=== PATIENT | male | born 1950 | race Caucasian/White ===

== ENCOUNTER 2018-07-11 13:15 | Day surgery (SDC) | payer MEDICARE, OTHER | END 2018-07-11 22:37 | disposition home or self-care (01) | LOC: WOUND 13:15 | DX: L98.412 Non-pressure chronic ulcer of buttock with fat layer exposed (principal) | CPT/HCPCS: G0463 ==

== ENCOUNTER 2018-07-18 07:55 | Day surgery (SDC) | payer MEDICARE, OTHER | END 2018-07-18 14:20 | disposition home or self-care (01) | LOC: WOUND 07:55 | DX: L98.412 Non-pressure chronic ulcer of buttock with fat layer exposed (principal); E11.9 Type 2 diabetes mellitus without complications; I10 Essential (primary) hypertension; F17.200 Nicotine dependence, unspecified, uncomplicated; G47.33 Obstructive sleep apnea (adult) (pediatric) | CPT/HCPCS: G0463 ==

== ENCOUNTER 2018-08-02 00:31 | Day surgery (SDC) | payer MEDICARE, OTHER | END 2018-08-02 12:00 | disposition home or self-care (01) | LOC: WOUND 00:31 | DX: E11.622 Type 2 diabetes mellitus with other skin ulcer (principal); L98.412 Non-pressure chronic ulcer of buttock with fat layer exposed; J44.9 Chronic obstructive pulmonary disease, unspecified; G47.30 Sleep apnea, unspecified; I10 Essential (primary) hypertension; F41.9 Anxiety disorder, unspecified | CPT/HCPCS: G0463 ==

== ENCOUNTER 2019-02-04 07:30 | Day surgery (SDC) | payer MEDICARE, OTHER | END 2019-02-04 22:51 | disposition home or self-care (01) | LOC: WOUND 07:30 | DX: E11.622 Type 2 diabetes mellitus with other skin ulcer (principal); L98.412 Non-pressure chronic ulcer of buttock with fat layer exposed; I10 Essential (primary) hypertension; J44.9 Chronic obstructive pulmonary disease, unspecified; G47.30 Sleep apnea, unspecified | CPT/HCPCS: 87070; 87075; 87205; G0463 ==

== ENCOUNTER 2019-02-11 08:55 | Day surgery (SDC) | payer MEDICARE, OTHER | END 2019-02-11 23:03 | disposition home or self-care (01) | LOC: WOUND 08:55 | DX: E11.622 Type 2 diabetes mellitus with other skin ulcer (principal); L98.412 Non-pressure chronic ulcer of buttock with fat layer exposed; I10 Essential (primary) hypertension; F17.200 Nicotine dependence, unspecified, uncomplicated | CPT/HCPCS: G0463 ==

== ENCOUNTER 2019-02-18 00:22 | Day surgery (SDC) | payer MEDICARE, OTHER | END 2019-02-18 23:01 | disposition home or self-care (01) | LOC: WOUND 00:22 | DX: E11.622 Type 2 diabetes mellitus with other skin ulcer (principal); L98.412 Non-pressure chronic ulcer of buttock with fat layer exposed; I10 Essential (primary) hypertension | CPT/HCPCS: G0463 ==

== ENCOUNTER 2019-02-25 00:14 | Day surgery (SDC) | payer MEDICARE, OTHER | END 2019-02-25 22:41 | disposition home or self-care (01) | LOC: WOUND 00:14 | DX: E11.622 Type 2 diabetes mellitus with other skin ulcer (principal); L98.412 Non-pressure chronic ulcer of buttock with fat layer exposed; I10 Essential (primary) hypertension; G47.30 Sleep apnea, unspecified; Z72.0 Tobacco use | CPT/HCPCS: G0463 ==

== ENCOUNTER 2019-03-04 00:22 | Day surgery (SDC) | payer MEDICARE, OTHER | END 2019-03-04 23:18 | disposition home or self-care (01) | LOC: WOUND 00:22 | DX: E11.622 Type 2 diabetes mellitus with other skin ulcer (principal); L98.412 Non-pressure chronic ulcer of buttock with fat layer exposed; I10 Essential (primary) hypertension; E11.40 Type 2 diabetes mellitus with diabetic neuropathy, unspecified; F17.200 Nicotine dependence, unspecified, uncomplicated | CPT/HCPCS: G0463 ==

== ENCOUNTER 2019-03-11 08:22 | Day surgery (SDC) | payer MEDICARE, OTHER | END 2019-03-11 22:54 | disposition home or self-care (01) | LOC: WOUND 08:22 | DX: E11.622 Type 2 diabetes mellitus with other skin ulcer (principal); L98.412 Non-pressure chronic ulcer of buttock with fat layer exposed; I10 Essential (primary) hypertension; G47.30 Sleep apnea, unspecified; J44.9 Chronic obstructive pulmonary disease, unspecified ==

== ENCOUNTER 2019-03-18 08:22 | Day surgery (SDC) | payer MEDICARE, OTHER | END 2019-03-18 22:38 | disposition home or self-care (01) | LOC: WOUND 08:22 | DX: E11.622 Type 2 diabetes mellitus with other skin ulcer (principal); L98.412 Non-pressure chronic ulcer of buttock with fat layer exposed; E11.40 Type 2 diabetes mellitus with diabetic neuropathy, unspecified; I10 Essential (primary) hypertension; J44.9 Chronic obstructive pulmonary disease, unspecified; G47.30 Sleep apnea, unspecified; D66 Hereditary factor VIII deficiency; F41.9 Anxiety disorder, unspecified | CPT/HCPCS: G0463 ==

== ENCOUNTER 2019-04-01 08:25 | Day surgery (SDC) | payer MEDICARE, OTHER | END 2019-04-01 22:40 | disposition home or self-care (01) | LOC: WOUND 08:25 | DX: E11.622 Type 2 diabetes mellitus with other skin ulcer (principal); L98.412 Non-pressure chronic ulcer of buttock with fat layer exposed; I10 Essential (primary) hypertension; F17.200 Nicotine dependence, unspecified, uncomplicated | CPT/HCPCS: G0463 ==

== ENCOUNTER → 2019-07-30 | Outpatient (CLI) | payer MEDICARE, OTHER ==
[2019-07-30 14:01] LABS: Stool Occult Bld Immuno 1 Negative (NEGATIVE)
== END ==
LOC: LAB SHORT 11:18 → LAB 11:18
PROVIDERS: Family Medicine
DX: Z12.11 Encounter for screening for malignant neoplasm of colon (principal)
CPT/HCPCS: G0328

== ENCOUNTER 2019-10-04 00:16 | Day surgery (SDC) | payer MEDICARE, OTHER ==
[~2019-10-04 00:16] MED LIST: ANORO ELLIPTA1 EACH INH; BUPROPION XL150 M1 PO; Doxazosin Mesyla4 MG PO; ERLEADA60 MG PO; LOVASTATIN40 MG PO; MONT4 PO; PROZAC20 MG PO; Percocet 5-3251 EACH PO; Ventolin/Prove6.7 GM INH
== END 2019-10-04 23:08 | disposition home or self-care (01) ==
LOC: WOUND 00:16
DX: E11.622 Type 2 diabetes mellitus with other skin ulcer (principal); L98.412 Non-pressure chronic ulcer of buttock with fat layer exposed; L72.9 Follicular cyst of the skin and subcutaneous tissue, unspecified; I10 Essential (primary) hypertension; Z88.5 Allergy status to narcotic agent; Z87.891 Personal history of nicotine dependence; Z79.899 Other long term (current) drug therapy
CPT/HCPCS: G0463

== ENCOUNTER 2019-10-17 00:14 | Day surgery (SDC) | payer MEDICARE, OTHER | END 2019-10-17 22:49 | disposition home or self-care (01) | LOC: WOUND 00:14 | DX: L98.412 Non-pressure chronic ulcer of buttock with fat layer exposed (principal); L72.9 Follicular cyst of the skin and subcutaneous tissue, unspecified | CPT/HCPCS: G0463 ==

== ENCOUNTER 2019-10-31 00:23 | Day surgery (SDC) | payer MEDICARE, OTHER | END 2019-10-31 22:35 | disposition home or self-care (01) | LOC: WOUND 00:23 | DX: E11.622 Type 2 diabetes mellitus with other skin ulcer (principal); L98.412 Non-pressure chronic ulcer of buttock with fat layer exposed; L72.9 Follicular cyst of the skin and subcutaneous tissue, unspecified; C61 Malignant neoplasm of prostate; I10 Essential (primary) hypertension; F17.200 Nicotine dependence, unspecified, uncomplicated; Z79.899 Other long term (current) drug therapy | CPT/HCPCS: G0463 ==

== ENCOUNTER 2020-01-19 21:54 | Inpatient (IN) | payer MEDICARE, OTHER ==
[~2020-01-19] VITALS: Ht 177.8 cm; Wt 105.4 kg
[~2020-01-19 21:54] MED LIST changes: -ANORO ELLIPTA1 EACH INH; -Doxazosin Mesyla4 MG PO; -LOVASTATIN40 MG PO; -MONT4 PO; -PROZAC20 MG PO; -Ventolin/Prove6.7 GM INH
[2020-01-19 22:49] LABS: BASOPHILS ABSOLUTE AUTO 0.14 K/mm3 (0.00-0.23); BASOPHILS PERCENT AUTO 2 % (0-2); EOSINOPHILS ABSOLUTE AUTO 0.24 K/mm3 (0.00-0.68); EOSINOPHILS PERCENT AUTO 3 % (0-6); Hematocrit 37.9 % (37.0-53.0); Hemoglobin 12.6 g/dL (13.5-17.5); IMMATURE GRAN ABSOLUTE AUTO 0.04 K/mm3 (0.00-0.10); IMMATURE GRAN PERCENT AUTO 1 % (0-1); LYMPHOCYTES ABSOLUTE AUTO 3.88 K/mm3 (0.84-5.20); LYMPHOCYTES PERCENT AUTO 44 % (21-46); MONOCYTES ABSOLUTE AUTO 0.77 K/mm3 (0.16-1.47); MONOCYTES PERCENT AUTO 9 % (4-13); Mean Corpuscular HGB 36.8 pg (26.0-34.0); Mean Corpuscular HGB Conc 33.2 g/dL (31.5-36.5); Mean Corpuscular Volume 111 fL (80-100); Mean Platelet Volume 9.8 fL (9.1-12.4); NEUTROPHILS ABSOLUTE AUTO 3.73 K/mm3 (1.96-9.15); NEUTROPHILS PERCENT AUTO 42 % (41-73); Platelet Count 161 K/mm3 (150-400); RDW Coefficient Variation 14.2 % (11.7-14.2); Red Blood Cell Count 3.42 M/mm3 (4.30-5.90)
[2020-01-19 23:06] LABS: International Normalized Ratio 1.31; Prothrombin Time Results 13.8 Sec (9.7-11.5)
[2020-01-19] MEDS ORDERED: Doxazosin Mesyla4 MG PO (23:07)
[2020-01-19] MEDS ORDERED: LOVASTATIN40 MG PO (23:07)
[2020-01-19] MEDS ORDERED: PROZAC20 MG PO (23:08)
[2020-01-19] MEDS ORDERED: MONT10T PO (23:08)
[2020-01-19] MEDS ORDERED: Klor-Con 1010 MEQ PO (23:09)
[2020-01-19] MEDS ORDERED: FUROSEMIDE40 MG PO (23:09)
[2020-01-19] MEDS ORDERED: Ventolin/Prove6.7 GM INH (23:10)
[2020-01-19] MEDS ORDERED: ANORO ELLIPTA1 EAC1 INH (23:10)
[2020-01-19] MEDS ORDERED: LATA.005SO BOTHEYES (23:20)
[2020-01-19] MEDS ORDERED: Restasis1 EACH BOTHEYES (23:21)
[2020-01-19 23:23] LABS: Alanine Aminotransfer (ALT/SGP 53 U/L (12-78); Albumin, Blood 2.9 g/dL (3.4-5.0); Albumin/Globulin Ratio 0.5 (0.8-1.8); Alk Phos 107 U/L (50-136); Anion Gap 9 mmol/L (6-16); Aspartate Aminotrans (AST/SGOT 162 U/L (12-37); Blood Urea Nitrogen 10 mg/dL (8-24); Bun/Creatinine Ratio 16.9 (12.0-20.0); CO2, Blood 28 mmol/L (21-32); Chloride, Blood 104 mmol/L (98-108); Creatinine, Blood 0.59 mg/dL (0.60-1.20); Globulin, Blood 5.8 g/dL (2.2-4.0); Glomerular Filtration Rate >60 (60-); Glucose, Blood 109 mg/dL (70-99); Potassium, Blood 3.4 mmol/L (3.5-5.5); Sodium, Blood 141 mmol/L (136-145); Total Protein, Blood 8.7 g/dL (6.4-8.2); Troponin I <0.015 ng/mL (0.000-0.040)
[2020-01-19] MEDS ORDERED: ERYT.5TO BOTHEYES (23:24)
--- NOTE | 2020-01-20 03:46 | NUR ---
IV TO L AC NOT PRESENT ON ADMIT. DRESSING IN PLACE W/SCANT BLOOD. IV CATHETER NOT FOUND IN BEDDING. ER NURSE STATED PT LEFT UNIT WITH IV IN PLACE.
--- NOTE | 2020-01-20 06:08 | NUR ---
SHIFT SUMMARY: FEDERICO IS A&OX4. VSS, NO ACUTE EVENTS. O2 @ 3 LPM VIA NC. HE WAS ADMITTED THIS SHIFT AFTER A GLF WITH A RIGHT FEMUR FX. HE REPORTS THAT THE NEW ORDER FOR IV DILAUDID IS EFFECTIVE AT MANAGING HIS PAIN MORESO THAN THE FENTANYL WAS. HE IS NPO. HE USES HIS CALL LIGHT APPROPRIATELY. HE IS USING THE URINAL WITHOUT DIFFICULTY. HE IS LYING IN BED WITH THE CALL LIGHT IN REACH. WILL REPORT TO DAY SHIFT RN.
[2020-01-20 08:18] LABS: BASOPHILS PERCENT AUTO 2 % (0-2); EOSINOPHILS ABSOLUTE AUTO 0.03 K/mm3 (0.00-0.68); EOSINOPHILS PERCENT AUTO 1 % (0-6); Hemoglobin 11.8 g/dL (13.5-17.5); IMMATURE GRAN ABSOLUTE AUTO 0.02 K/mm3 (0.00-0.10); IMMATURE GRAN PERCENT AUTO 0 % (0-1); LYMPHOCYTES ABSOLUTE AUTO 1.27 K/mm3 (0.84-5.20); LYMPHOCYTES PERCENT AUTO 20 % (21-46); MONOCYTES PERCENT AUTO 11 % (4-13); Mean Corpuscular HGB 36.5 pg (26.0-34.0); Mean Corpuscular HGB Conc 32.8 g/dL (31.5-36.5); Mean Corpuscular Volume 112 fL (80-100); Mean Platelet Volume 9.3 fL (9.1-12.4); NEUTROPHILS ABSOLUTE AUTO 4.34 K/mm3 (1.96-9.15); NEUTROPHILS PERCENT AUTO 67 % (41-73); Platelet Count 117 K/mm3 (150-400); RDW Coefficient Variation 13.8 % (11.7-14.2); RDW Standard Deviation 57.4 fL (35.1-46.3); Red Blood Cell Count 3.23 M/mm3 (4.30-5.90); White Blood Cell Count 6.46 K/mm3 (4.00-11.30)
[2020-01-20 08:34] LABS: Anion Gap 8 mmol/L (6-16); Blood Urea Nitrogen 11 mg/dL (8-24); Bun/Creatinine Ratio 22.4 (12.0-20.0); CO2, Blood 29 mmol/L (21-32); Calcium, Blood 7.9 mg/dL (8.5-10.1); Chloride, Blood 105 mmol/L (98-108); Creatinine, Blood 0.49 mg/dL (0.60-1.20); Glomerular Filtration Rate >60 (60-); Glucose, Blood 100 mg/dL (70-99); International Normalized Ratio 1.3; Potassium, Blood 3.3 mmol/L (3.5-5.5); Prothrombin Time Results 13.7 Sec (9.7-11.5); Sodium, Blood 142 mmol/L (136-145)
--- NOTE | 2020-01-20 13:05 | NUR ---
PT INTO SDS VIA BED FROM MED FLOOR. History, Chart, Medications and Allergies reviewed before start of procedure. Lungs clear T/O to Auscultation. Patient confirms NPO status and agrees with scheduled surgery. Pre-Op teaching done. Pt verbalizes understanding.
--- NOTE | 2020-01-20 16:58 | NUR ---
PT ARRIVED TO THE ROOM FROM PACU AT APPROXIMATLEY 1605. PT IS DROWSY BUT ORIENTED. HE IS TREMULOUS AND REPORTS MILD ANXIETY; CIWA SCORE OF 4. PT IS RESTING IN BED, HE RATES HIS PAIN AT 6/10 BUT APPEARS COMFORTABLE. PT HAS MILD HTN. WILL CONTINUE TO MONITOR.
--- NOTE | 2020-01-20 17:03 | NUR ---
DR. BECERRIL NOTIFIED OF CIWA SCORE OF 4 AT THIS TIME. LIBRIUM AND ATIVAN REQUESTED FOR MANAGEMENT OF WITHDRAWAL SYMPTOMS. DR. BECERRIL ALSO NOTIFIED OF ELEVATED BP, HYDRALAZINE PRN REQUESTED. INCREASE IN PO PAIN MEDICATION REQUESTED TO DECREASE THE USE OF IV NARCOTICS. WILL CONTINUE TO MONITOR AND AWAIT ORDERS.
--- NOTE | 2020-01-20 18:01 | NUR ---
SHIFT SUMMARY PT IS POD#0 FROM A R HIP PINNING WITH DR. SARABIA. PT'S PAIN HAS BEEN MANAGED WITHOUT ADDITIONAL PAIN MEDICATION SINCE HE ARRIVED TO THE UNIT. PT'S CIWA SCORE IS 4 AND HE WAS GIVEN LIBRIUM. PT HAS BEEN ON 2 LITERS O2 SINCE HE ARRIVED TO THE UNIT, PT IS WORKING ON USING HIS FLUTTER VALVE. VSS. WILL MONITOR UNTIL REPORT TO ONCOMING RN.
[2020-01-21 04:24] LABS: Hematocrit 30.8 % (37.0-53.0); Hemoglobin 10.2 g/dL (13.5-17.5); Mean Corpuscular HGB 36.7 pg (26.0-34.0); Mean Corpuscular HGB Conc 33.1 g/dL (31.5-36.5); Mean Corpuscular Volume 111 fL (80-100); Mean Platelet Volume 10.1 fL (9.1-12.4); Platelet Count 110 K/mm3 (150-400); RDW Coefficient Variation 13.8 % (11.7-14.2); RDW Standard Deviation 57.3 fL (35.1-46.3); Red Blood Cell Count 2.78 M/mm3 (4.30-5.90)
[2020-01-21 04:40] LABS: Anion Gap 6 mmol/L (6-16); Blood Urea Nitrogen 14 mg/dL (8-24); Bun/Creatinine Ratio 26.7 (12.0-20.0); CO2, Blood 33 mmol/L (21-32); Calcium, Blood 7.5 mg/dL (8.5-10.1); Chloride, Blood 101 mmol/L (98-108); Creatinine, Blood 0.52 mg/dL (0.60-1.20); Glomerular Filtration Rate >60 (60-); Glucose, Blood 100 mg/dL (70-99); Magnesium, Blood 1.2 mg/dL (1.6-2.4); Phosphorus, Blood 3.7 mg/dL (2.5-4.9); Potassium, Blood 3.4 mmol/L (3.5-5.5); Sodium, Blood 140 mmol/L (136-145)
--- NOTE | 2020-01-21 06:45 | NUR ---
SHIFT SUMMARY LYING IN SEMI FOWERS WITH EYES CLOSED. HAS RESTED WELL, MEDICATED FOR PAIN X1 THIS SHIFT. STATES THAT KPAD HAS REALLY HELPED CONTROL THE PAIN HE FELT IN HIS LEFT SHOULDER THAT WAS NOT RELIVED WITH IV PAIN MEDS. DENIES PAIN, DISCOMFORT, OR FURTHER NEEDS AT THIS TIME. SAFETY MEASURES IN PLACE. WILL CONTINUE TO MONITOR AND GIVE HAND OFF TO ONCOMING SHIFT USING SBAR DURING BEDSIDE REPORT.
--- NOTE | 2020-01-21 13:50 | NUR ---
01/21/20 1350 Krys Callahan VERIFICATIONS: EDIT CHART.
--- NOTE | 2020-01-21 17:43 | NUR ---
SHIFT SUMMARY PT IS POD#1 FROM A RIGHT HIP PINNING WITH DR. SARABIA. PAIN HAS BEEN MANAGED WITH 2 OXYCODONE EVERY 4 HOURS NEEDED. PT REPORTS HE HAS CHRONIC PAIN AT BASELINE. PT WAS ABLE TO WORK WITH PHYSICAL THERAPY THIS SHIFT, HE WAS A 2 PERSON MAX ASSIST TO SIT AT THE EDGE OF THE BED. PT IS A MAX ASSIST FOR TURNING AND IS PAINFUL WITH MOVEMENT EVEN WHEN MEDICATED. [facility] WAS CONTACTED TODAY FOR PT'S HOME DRESSING CHANGE ORDERS, TO RE-DRESS CHRONIC WOUND IN THE SUZIE/THIGH FOLD. PLAN FOR SNF UPON DISCHARGE. VSS. WILL MONITOR UNTIL REPORT TO ONCOMING RN.
--- NOTE | 2020-01-22 06:42 | NUR ---
SHIFT SUMMARY LYING IN SEMI FOWERS WITH EYES CLOSED, HAS RESTED WELL. MEDICATED FOR PAIN X1 THIS SHIFT. STATES THAT HE IS READY FOR HIS IVF TO BE D/C'D. STATES HE IS TIRED OF URINATING SO MUCH. DENIES DISCOMFORT, OR FURTHER NEEDS AT THIS TIME. SAFETY MEASURES IN PLACE. WILL CONTINUE TO MONITOR AND GIVE HAND OFF TO ONCOMING SHIFT USING SBAR DURING BEDSIDE REPORT.
[2020-01-22 08:32] LABS: Hematocrit 31.2 % (37.0-53.0); Hemoglobin 10.2 g/dL (13.5-17.5); Mean Corpuscular HGB 36.3 pg (26.0-34.0); Mean Corpuscular HGB Conc 32.7 g/dL (31.5-36.5); Mean Corpuscular Volume 111 fL (80-100); Mean Platelet Volume 10.4 fL (9.1-12.4); Platelet Count 129 K/mm3 (150-400); RDW Coefficient Variation 13.2 % (11.7-14.2); Red Blood Cell Count 2.81 M/mm3 (4.30-5.90); White Blood Cell Count 7.62 K/mm3 (4.00-11.30)
[2020-01-22 08:44] LABS: Anion Gap 5 mmol/L (6-16); Blood Urea Nitrogen 8 mg/dL (8-24); Bun/Creatinine Ratio 14.9 (12.0-20.0); CO2, Blood 29 mmol/L (21-32); Chloride, Blood 103 mmol/L (98-108); Creatinine, Blood 0.54 mg/dL (0.60-1.20); Glomerular Filtration Rate >60 (60-); Glucose, Blood 89 mg/dL (70-99); Magnesium, Blood 1.4 mg/dL (1.6-2.4); Potassium, Blood 3.7 mmol/L (3.5-5.5); Sodium, Blood 137 mmol/L (136-145)
--- NOTE | 2020-01-22 13:53 | NUR ---
REPORT CALLED TO STEPHEN AT [facility]
--- NOTE | 2020-01-22 15:21 | NUR ---
DISCHARGE SUMMARY PT A&OX4, VSS, T98.7, LEFT VIA GURNEY TO [facility] WITH ALL PERSONAL POSSESSIONS INCLUDING 2 HEARING AIDS, CELL PHONE AND DECAL APPLIER; IN ROOM AT TIME OF DC AND LOOKED ROOM OVER TO ENSURE ALL PERSONAL ITEMS TAKEN. REPORT CALLED TO STEPHEN. MARINO ASH.
== END 2020-01-22 15:01 | DRG 481 ==
LOC: ER 21:54 → SURS 23:21
PROVIDERS: Emergency Medicine; Internal Medicine; Orthopaedic Surgery; ADMIT Family Medicine
PROC: 0QS636Z Reposition Right Upper Femur with Intramedullary Internal Fixation Device, Percutaneous Approach (ICD-10-PCS; principal; 2020-01-20 08:30)
DX: S72.141A Displaced intertrochanteric fracture of right femur, initial encounter for closed fracture (principal); C79.51 Secondary malignant neoplasm of bone; J44.9 Chronic obstructive pulmonary disease, unspecified; Z85.46 Personal history of malignant neoplasm of prostate; F10.10 Alcohol abuse, uncomplicated; D64.9 Anemia, unspecified; E87.6 Hypokalemia; Z20.828 Contact with and (suspected) exposure to other viral communicable diseases; W18.30XA Fall on same level, unspecified, initial encounter; Z66 Do not resuscitate; Z87.891 Personal history of nicotine dependence; C61 Malignant neoplasm of prostate
CPT/HCPCS: 36415; 71045; 72100; 73502; 73503; 73552; 80048; 80053; 83735; 84100; 84484; 85025; 85027; 85610; 86850; 86900; 86901; 93005; 93010; 94640; 94667; 94760; 94762; 97110; 97112; 97116; 97162; 97166; 99285-25; A9270; A9270-GY; C1713; J0330; J0690; J1170; J2250; J2370; J2704; J3010; J3475; J7030; J7120; U0002

== ENCOUNTER 2020-03-09 09:37 | Observation (INO) | payer MEDICARE, OTHER ==
[~2020-03-09] VITALS: Ht 177.8 cm; Wt 99.6 kg
[~2020-03-09 09:37] MED LIST changes: +AMOCLA875 PO; +AZIT250 PO; +BUDE.25 INH; +ERYT.5TO BOTHEYES; +LATA.005SO BOTHEYES; +LOVASTATIN40 MG PO; +Levaquin750 MG PO; +MUPIROCIN15 GM TOP; +OXYC5 PO; +Restasis1 EACH BOTHEYES; +SULTRIDS PO; +VISBIOME PROBIOTIC PO
[2020-03-09 10:34] LABS: BASOPHILS ABSOLUTE AUTO 0.05 K/mm3 (0.00-0.23); BASOPHILS PERCENT AUTO 1 % (0-2); EOSINOPHILS ABSOLUTE AUTO 0.01 K/mm3 (0.00-0.68); EOSINOPHILS PERCENT AUTO 0 % (0-6); Hematocrit 39.6 % (37.0-53.0); Hemoglobin 13.2 g/dL (13.5-17.5); IMMATURE GRAN ABSOLUTE AUTO 0.01 K/mm3 (0.00-0.10); IMMATURE GRAN PERCENT AUTO 0 % (0-1); LYMPHOCYTES ABSOLUTE AUTO 1.07 K/mm3 (0.84-5.20); LYMPHOCYTES PERCENT AUTO 28 % (21-46); MONOCYTES ABSOLUTE AUTO 0.58 K/mm3 (0.16-1.47); MONOCYTES PERCENT AUTO 15 % (4-13); Mean Corpuscular HGB 34.9 pg (26.0-34.0); Mean Corpuscular HGB Conc 33.3 g/dL (31.5-36.5); Mean Corpuscular Volume 105 fL (80-100); Mean Platelet Volume 9.3 fL (9.1-12.4); NEUTROPHILS ABSOLUTE AUTO 2.07 K/mm3 (1.96-9.15); NEUTROPHILS PERCENT AUTO 55 % (41-73); Platelet Count 147 K/mm3 (150-400); RDW Coefficient Variation 11.7 % (11.7-14.2); RDW Standard Deviation 45.8 fL (35.1-46.3); Red Blood Cell Count 3.78 M/mm3 (4.30-5.90); White Blood Cell Count 3.79 K/mm3 (4.00-11.30)
[2020-03-09 10:36] LABS: PCO2 Arterial 36.8 mmHg (35-45); PO2 Arterial 60.2 mmHg (80-100); pH Blood Arterial 7.48 (7.35-7.45)
[2020-03-09 10:48] LABS: Alanine Aminotransfer (ALT/SGP 17 U/L (12-78); Albumin, Blood 2.9 g/dL (3.4-5.0); Albumin/Globulin Ratio 0.7 (0.8-1.8); Alk Phos 128 U/L (50-136); Anion Gap 7 mmol/L (6-16); Aspartate Aminotrans (AST/SGOT 42 U/L (12-37); Bilirubin, Total 0.7 mg/dL (0.1-1.0); Blood Urea Nitrogen 10 mg/dL (8-24); Bun/Creatinine Ratio 17.8 (12.0-20.0); CO2, Blood 26 mmol/L (21-32); Calcium, Blood 8.9 mg/dL (8.5-10.1); Chloride, Blood 106 mmol/L (98-108); Creatinine, Blood 0.56 mg/dL (0.60-1.20); Globulin, Blood 4.4 g/dL (2.2-4.0); Glomerular Filtration Rate >60 (60-); Glucose, Blood 94 mg/dL (70-99); Sodium, Blood 139 mmol/L (136-145); Total Protein, Blood 7.3 g/dL (6.4-8.2)
[2020-03-09 12:18] LABS: Adenovirus Not Detected (NOT DETECT); Bordetella pertussis Not Detected (NOT DETECT); Chlamydophila pneumoniae Not Detected (NOT DETECT); Coronavirus 229E Not Detected (NOT DETECT); Coronavirus HKU1 Not Detected (NOT DETECT); Coronavirus NL63 Not Detected (NOT DETECT); Coronavirus OC43 Not Detected (NOT DETECT); Human Metapneumovirus Not Detected (NOT DETECT); Human Rhinovirus/Enterovirus Not Detected (NOT DETECT); Influenza A/2009-H1 Not Detected (NOT DETECT); Influenza A/H1 Not Detected (NOT DETECT); Influenza A/H3 Not Detected (NOT DETECT); Influenza B Not Detected (NOT DETECT); Mycoplasma pneumoniae Not Detected (NOT DETECT); Parainfluenza Virus 1 Not Detected (NOT DETECT); Parainfluenza Virus 2 Not Detected (NOT DETECT); Parainfluenza Virus 3 Not Detected (NOT DETECT); Parainfluenza Virus 4 Not Detected (NOT DETECT); Respiratory Syncytial Virus Not Detected (NOT DETECT); SARS-Cov-2 (COVID-19), BioFire Not Detected (NOT DETECT)
[2020-03-09] MEDS ORDERED: PROZAC20 MG PO (12:34)
[2020-03-09] MEDS ORDERED: Doxazosin Mesyla4 MG PO (12:34)
[2020-03-09] MEDS ORDERED: LOVA40 PO (12:35)
[2020-03-09] MEDS ORDERED: IPRAT-ALBUT 0.5-3 ML INH (12:35)
[2020-03-09] MEDS ORDERED: ANORO ELLIPTA1 EAC1 INH (12:39)
[2020-03-09] MEDS ORDERED: MONT10T PO (12:41)
[2020-03-09] MEDS ORDERED: FUROSEMIDE40 MG PO (12:41)
[2020-03-09] MEDS ORDERED: Klor-Con 1010 MEQ PO (12:41)
[2020-03-09] MEDS ORDERED: Ventolin/Prove6.7 GM INH (12:42)
[2020-03-09] MEDS ORDERED: ACET325 PO (13:25)
[2020-03-09] MEDS ORDERED: COLACE100 MG PO (13:25)
[2020-03-09] MEDS ORDERED: CYCLOBENZAPRINE5 MG PO (13:27)
[2020-03-09] MEDS ORDERED: OXYACE7.5T PO (13:33)
[2020-03-10 04:41] LABS: Hematocrit 42.9 % (37.0-53.0); Hemoglobin 13.9 g/dL (13.5-17.5); Mean Corpuscular HGB 34.2 pg (26.0-34.0); Mean Corpuscular HGB Conc 32.4 g/dL (31.5-36.5); Mean Corpuscular Volume 106 fL (80-100); Mean Platelet Volume 9.5 fL (9.1-12.4); Platelet Count 139 K/mm3 (150-400); RDW Coefficient Variation 11.5 % (11.7-14.2); Red Blood Cell Count 4.06 M/mm3 (4.30-5.90); White Blood Cell Count 2.53 K/mm3 (4.00-11.30)
[2020-03-10 05:00] LABS: Anion Gap 8 mmol/L (6-16); Blood Urea Nitrogen 12 mg/dL (8-24); Bun/Creatinine Ratio 22.3 (12.0-20.0); CO2, Blood 24 mmol/L (21-32); Calcium, Blood 9.1 mg/dL (8.5-10.1); Chloride, Blood 107 mmol/L (98-108); Creatinine, Blood 0.54 mg/dL (0.60-1.20); Glomerular Filtration Rate >60 (60-); Glucose, Blood 162 mg/dL (70-99); Potassium, Blood 3.9 mmol/L (3.5-5.5); Sodium, Blood 139 mmol/L (136-145)
[2020-03-10] MEDS ORDERED: AZIT500 PO (16:29)
[2020-03-10] MEDS ORDERED: DELTASONE20 MG PO (16:30)
== END 2020-03-10 16:55 | disposition home health service (06) ==
LOC: ER 09:37 → MEDS 09:38
PROVIDERS: Emergency Medicine; Nurse Practitioner Acute Care; ADMIT Hospitalist
DX: J44.1 Chronic obstructive pulmonary disease with (acute) exacerbation (principal); J96.01 Acute respiratory failure with hypoxia; G92 Toxic encephalopathy; D61.818 Other pancytopenia; C61 Malignant neoplasm of prostate; C79.51 Secondary malignant neoplasm of bone; E78.5 Hyperlipidemia, unspecified; N40.1 Benign prostatic hyperplasia with lower urinary tract symptoms; F33.1 Major depressive disorder, recurrent, moderate; H40.1311 Pigmentary glaucoma, right eye, mild stage; E11.9 Type 2 diabetes mellitus without complications; I10 Essential (primary) hypertension; N13.8 Other obstructive and reflux uropathy; H04.129 Dry eye syndrome of unspecified lacrimal gland; Z23 Encounter for immunization; Z20.828 Contact with and (suspected) exposure to other viral communicable diseases; Z87.891 Personal history of nicotine dependence; Z79.82 Long term (current) use of aspirin; Z79.01 Long term (current) use of anticoagulants; Z79.899 Other long term (current) drug therapy; Z66 Do not resuscitate; Z79.51 Long term (current) use of inhaled steroids; Z88.5 Allergy status to narcotic agent
CPT/HCPCS: 0202U; 36415; 36600; 71045; 80048; 80053; 82803; 85025; 85027; 93005; 93010; 94640; 94644; 94664; 94760; 94761; 96372; 96374; 96376; 97110; 97116; 97161; 97165; 97535; 98960; 99285-25; G0378; J1650; J2930

== ENCOUNTER 2020-06-22 00:47 | Day surgery (SDC) | payer MEDICARE, OTHER ==
[~2020-06-22 00:47] MED LIST changes: +ACET325 PO; +AZIT500 PO; +COLACE100 MG PO; +CYCLOBENZAPRINE5 MG PO; +DELTASONE20 MG PO; +Doxazosin Mesyla4 MG PO; +FURO20 PO; +IPRAT-ALBUT 0.5-3 ML INH; +Klor-Con 1010 MEQ PO; +LOVA40 PO; +MONT10T PO; +OXYACE7.5T PO; +PROZAC20 MG PO; +Ventolin/Prove6.7 GM INH
== END 2020-06-22 23:45 ==
LOC: WOUND 00:47
DX: L98.412 Non-pressure chronic ulcer of buttock with fat layer exposed (principal); E11.9 Type 2 diabetes mellitus without complications; I10 Essential (primary) hypertension; C61 Malignant neoplasm of prostate; C79.51 Secondary malignant neoplasm of bone; F17.200 Nicotine dependence, unspecified, uncomplicated; Z88.8 Allergy status to other drugs, medicaments and biological substances
CPT/HCPCS: G0463

== ENCOUNTER → 2020-06-26 | Outpatient (CLI) | payer MEDICARE, OTHER ==
[~2020-06-26] MED LIST changes: +ALBU2.5V5 NEB; +ANORO ELLIPTA1 EAC1 INH; +B-1100 M1 PO; +BICALUTAMIDE PO; +CALCIUM CARBON500 M4 PO; +DOCUZEN 8.6-501 EACH PO; +DOXY100 PO; +DULO60 PO; +FAMO20 PO; +MIRALAX17 GM PO; +MULVITA PO; +Nicoderm Cq1 EAC1 TOP; +ORGOVYX120 MG PO; +SPIR25 PO
[2020-06-26 15:01] LABS: Appearance, Urine Clear (Clear); Bilirubin, Urine Neg (Neg); Blood, Urine Neg (Neg); Color, Urine Yellow (P-Yellow); Glucose Qualitative, Urine Neg (Neg); Ketones, Urine Neg (Neg); Leukocyte Esterase, Urine Neg (Neg); Nitrite, Urine Neg (Neg); Protein, Urine Neg (Neg); Urobilinogen, Urine NORM (Normal)
== END | disposition home or self-care (01) ==
LOC: LAB 12:20 → LAB SHORT 12:20
PROVIDERS: Family Medicine
DX: N39.0 Urinary tract infection, site not specified (principal)
CPT/HCPCS: 81003

== ENCOUNTER 2020-07-02 00:27 | Day surgery (SDC) | payer MEDICARE, OTHER ==
[~2020-07-02 00:27] MED LIST changes: -ALBU2.5V5 NEB; -ANORO ELLIPTA1 EAC1 INH; -B-1100 M1 PO; -BICALUTAMIDE PO; -CALCIUM CARBON500 M4 PO; -DOCUZEN 8.6-501 EACH PO; -DOXY100 PO; -DULO60 PO; -FAMO20 PO; -MIRALAX17 GM PO; -MULVITA PO; -Nicoderm Cq1 EAC1 TOP; -ORGOVYX120 MG PO; -SPIR25 PO
== END 2020-07-02 22:48 | disposition home or self-care (01) ==
LOC: WOUND 00:27
DX: E11.622 Type 2 diabetes mellitus with other skin ulcer (principal); L98.412 Non-pressure chronic ulcer of buttock with fat layer exposed; L98.492 Non-pressure chronic ulcer of skin of other sites with fat layer exposed; L98.8 Other specified disorders of the skin and subcutaneous tissue; J44.9 Chronic obstructive pulmonary disease, unspecified; I10 Essential (primary) hypertension; C61 Malignant neoplasm of prostate; Z72.0 Tobacco use
CPT/HCPCS: G0463

== ENCOUNTER 2020-07-15 00:26 | Day surgery (SDC) | payer MEDICARE, OTHER | END 2020-07-15 22:47 | disposition home or self-care (01) | LOC: WOUND 00:26 | DX: E11.622 Type 2 diabetes mellitus with other skin ulcer (principal); L98.412 Non-pressure chronic ulcer of buttock with fat layer exposed; J44.9 Chronic obstructive pulmonary disease, unspecified; G47.30 Sleep apnea, unspecified; I10 Essential (primary) hypertension; Z72.0 Tobacco use | CPT/HCPCS: A9270; G0463 ==

== ENCOUNTER 2020-07-22 00:06 | Day surgery (SDC) | payer MEDICARE, OTHER | END 2020-07-22 22:39 | disposition home or self-care (01) | LOC: WOUND 00:06 | DX: L98.412 Non-pressure chronic ulcer of buttock with fat layer exposed (principal); E11.9 Type 2 diabetes mellitus without complications; J44.9 Chronic obstructive pulmonary disease, unspecified; I10 Essential (primary) hypertension; Z72.0 Tobacco use | CPT/HCPCS: A9270; G0463 ==

== ENCOUNTER 2020-07-27 01:32 | Day surgery (SDC) | payer MEDICARE, OTHER | END 2020-07-27 23:06 | disposition home or self-care (01) | LOC: WOUND 01:32 | DX: E11.622 Type 2 diabetes mellitus with other skin ulcer (principal); L98.412 Non-pressure chronic ulcer of buttock with fat layer exposed; J44.9 Chronic obstructive pulmonary disease, unspecified; I10 Essential (primary) hypertension; Z72.0 Tobacco use | CPT/HCPCS: A9270; G0463 ==

== ENCOUNTER 2020-08-06 00:17 | Day surgery (SDC) | payer MEDICARE, OTHER | END 2020-08-06 23:00 | disposition home or self-care (01) | LOC: WOUND 00:17 | DX: L97.812 Non-pressure chronic ulcer of other part of right lower leg with fat layer exposed (principal); E11.9 Type 2 diabetes mellitus without complications; J44.9 Chronic obstructive pulmonary disease, unspecified; I10 Essential (primary) hypertension; C61 Malignant neoplasm of prostate; Z72.0 Tobacco use | CPT/HCPCS: G0463 ==

== ENCOUNTER 2020-08-12 00:17 | Day surgery (SDC) | payer MEDICARE, OTHER | END 2020-08-12 22:37 | disposition home or self-care (01) | LOC: WOUND 00:17 | DX: E11.622 Type 2 diabetes mellitus with other skin ulcer (principal); L98.412 Non-pressure chronic ulcer of buttock with fat layer exposed; J44.9 Chronic obstructive pulmonary disease, unspecified; I10 Essential (primary) hypertension; C61 Malignant neoplasm of prostate; G47.33 Obstructive sleep apnea (adult) (pediatric); Z72.0 Tobacco use | CPT/HCPCS: G0463 ==

== ENCOUNTER 2020-08-24 00:18 | Day surgery (SDC) | payer MEDICARE, OTHER | END 2020-08-24 22:50 | disposition home or self-care (01) | LOC: WOUND 00:18 | DX: L98.412 Non-pressure chronic ulcer of buttock with fat layer exposed (principal); I10 Essential (primary) hypertension; E11.9 Type 2 diabetes mellitus without complications; J44.9 Chronic obstructive pulmonary disease, unspecified | CPT/HCPCS: G0463 ==

== ENCOUNTER 2020-09-07 00:23 | Day surgery (SDC) | payer MEDICARE, OTHER ==
[~2020-09-07 00:23] MED LIST changes: +ANORO ELLIPTA1 EAC1 INH; -FURO20 PO; +FUROSEMIDE40 MG PO
== END 2020-09-07 22:40 | disposition home or self-care (01) ==
LOC: WOUND 00:23
DX: E11.622 Type 2 diabetes mellitus with other skin ulcer (principal); L98.412 Non-pressure chronic ulcer of buttock with fat layer exposed; J44.9 Chronic obstructive pulmonary disease, unspecified; I10 Essential (primary) hypertension; Z72.0 Tobacco use; Z85.46 Personal history of malignant neoplasm of prostate
CPT/HCPCS: G0463

== ENCOUNTER → 2020-11-17 | Outpatient (CLI) | payer MEDICARE, OTHER ==
[~2020-11-17] MED LIST changes: +ALBU2.5V5 NEB; +B-1100 M1 PO; +BICALUTAMIDE PO; +CALCIUM CARBON500 M4 PO; +DOCUZEN 8.6-501 EACH PO; +DOXY100 PO; +DULO60 PO; +FAMO20 PO; +FURO20 PO; -FUROSEMIDE40 MG PO; +MIRALAX17 GM PO; +MULVITA PO; +Nicoderm Cq1 EAC1 TOP; +ORGOVYX120 MG PO; +SPIR25 PO
== END | disposition home or self-care (01) ==
LOC: LAB 15:00 → LAB SHORT 15:00
PROVIDERS: Family Medicine
DX: C61 Malignant neoplasm of prostate (principal)
CPT/HCPCS: 84153

== ENCOUNTER 2020-11-23 14:05 | Inpatient (IN) | payer MEDICARE, OTHER ==
[~2020-11-23] VITALS: Ht 177.8 cm; Wt 108.1 kg
[~2020-11-23 14:05] MED LIST changes: -ALBU2.5V5 NEB; -ANORO ELLIPTA1 EAC1 INH; -B-1100 M1 PO; -BICALUTAMIDE PO; -CALCIUM CARBON500 M4 PO; -DOCUZEN 8.6-501 EACH PO; -DOXY100 PO; -DULO60 PO; -FAMO20 PO; -MIRALAX17 GM PO; -MULVITA PO; -Nicoderm Cq1 EAC1 TOP; -ORGOVYX120 MG PO; -SPIR25 PO
[2020-11-23] MEDS ORDERED: DULO60 PO (15:01)
[2020-11-23] MEDS ORDERED: ORGOVYX120 MG PO (15:02)
[2020-11-23 15:07] LABS: BASOPHILS ABSOLUTE AUTO 0.14 K/mm3 (0.00-0.23); BASOPHILS PERCENT AUTO 1 % (0-2); EOSINOPHILS ABSOLUTE AUTO 0.08 K/mm3 (0.00-0.68); EOSINOPHILS PERCENT AUTO 1 % (0-6); Hematocrit 34.9 % (37.0-53.0); Hemoglobin 12.6 g/dL (13.5-17.5); IMMATURE GRAN ABSOLUTE AUTO 0.12 K/mm3 (0.00-0.10); IMMATURE GRAN PERCENT AUTO 1 % (0-1); LYMPHOCYTES ABSOLUTE AUTO 2.34 K/mm3 (0.84-5.20); LYMPHOCYTES PERCENT AUTO 14 % (21-46); MONOCYTES ABSOLUTE AUTO 1.54 K/mm3 (0.16-1.47); MONOCYTES PERCENT AUTO 9 % (4-13); Mean Corpuscular HGB 40.5 pg (26.0-34.0); Mean Corpuscular HGB Conc 36.1 g/dL (31.5-36.5); Mean Corpuscular Volume 112 fL (80-100); Mean Platelet Volume 9.7 fL (9.1-12.4); NEUTROPHILS ABSOLUTE AUTO 13.11 K/mm3 (1.96-9.15); NEUTROPHILS PERCENT AUTO 76 % (41-73); NRBC ABSOLUTE 0.02 K/mm3 (0.00-0.02); NRBC Auto 0.1 /100 WBC (0.0-0.2); Platelet Count 130 K/mm3 (150-400); RDW Coefficient Variation 15.8 % (11.7-14.2); RDW Standard Deviation 64.9 fL (35.1-46.3); Red Blood Cell Count 3.11 M/mm3 (4.30-5.90); White Blood Cell Count 17.33 K/mm3 (4.00-11.30)
[2020-11-23 15:29] LABS: Albumin, Blood 1.8 g/dL (3.4-5.0); Albumin/Globulin Ratio 0.3 (0.8-1.8); Bilirubin, Direct 14.7 mg/dL (0.0-0.3); Bilirubin, Indirect 5.8 mg/dL (0.1-0.7); Bilirubin, Total 20.5 mg/dL (0.1-1.0); Bun/Creatinine Ratio 29.6 (12.0-20.0); Calcium, Blood 8.7 mg/dL (8.5-10.1); Creatinine, Blood 1.35 mg/dL (0.60-1.20); Globulin, Blood 5.4 g/dL (2.2-4.0); Potassium, Blood 2.9 mmol/L (3.5-5.5); Total Protein, Blood 7.2 g/dL (6.4-8.2)
[2020-11-23 16:50] LABS: Source, Urine Clean Catch
[2020-11-23 17:09] LABS: Appearance, Urine Hazy (Clear); Blood, Urine 3+ (Neg); Color, Urine Amber (P-Yellow); Glucose Qualitative, Urine 1+ (Neg); Ketones, Urine Neg (Neg); Leukocyte Esterase, Urine 2+ (Neg); Nitrite, Urine Pos (Neg); Protein, Urine 3+ (Neg); Urobilinogen, Urine 4+ (Normal)
[2020-11-23 17:17] LABS: Bilirubin, Urine 3+ (Neg)
[2020-11-23 17:19] LABS: Amorphous Light (0-Heavy); Bacteria Many /hpf; Red Blood Cells, Urine 0-2 /hpf (0-2); Squamous Epithelial Cells Rare /hpf (Few)
[2020-11-23] MEDS ORDERED: BICALUTAMIDE PO (17:43)
[2020-11-23] MEDS ORDERED: LOVASTATIN40 MG PO (17:45)
[2020-11-23] MEDS ORDERED: ANORO ELLIPTA1 EAC1 INH (17:46)
[2020-11-23] MEDS ORDERED: MULVITA PO (18:32)
[2020-11-23] MEDS ORDERED: CALCIUM CARBON500 M4 PO (18:33)
[2020-11-23] MEDS ORDERED: ALBU2.5V5 NEB (18:35)
--- NOTE | 2020-11-24 04:42 | NUR ---
SHIFT SUMMARY RECEIVED REPORT FROM LIDA CORLEY. PATIENT TO ROOM FROM ED @2014, SLID TO THE BED. PATIENT IS ALERT AND ORIENTED X4. REPOSITIONS SELF IN BED. O2 SATS 93% ON 3L NC. PT STATES WHEELCHAIR BOUND AT BASELINE. DENIES CP/PRESSURE AND SOB. CIWA OF ZERO, PT STATES LAST DRINK 11/22/20 @2100, WILL CONTINUE TO ASSESS FOR WITHDRAWAL, SEIZURE PADS ON BED. VSS, NO ACUTE CHANGES. CALL LIGHT IN REACH.
[2020-11-24 04:46] LABS: Albumin/Globulin Ratio 0.4 (0.8-1.8); Bilirubin, Total 21.3 mg/dL (0.1-1.0); Bun/Creatinine Ratio 27.7 (12.0-20.0); Calcium, Blood 8.2 mg/dL (8.5-10.1); Creatinine, Blood 1.48 mg/dL (0.60-1.20); Globulin, Blood 4.6 g/dL (2.2-4.0); Potassium, Blood 2.8 mmol/L (3.5-5.5); Total Protein, Blood 6.6 g/dL (6.4-8.2)
[2020-11-24 09:39] LABS: International Normalized Ratio 2.14; Prothrombin Time Results 22.1 Sec (9.7-11.5)
[2020-11-24 14:41] LABS: Automated BF WBC Count 0.118 K/mm3 (0-999); Body Fluid WBC Count 118 /mm3 (0-999)
[2020-11-24 15:07] LABS: Lactate Dehydrogenase, Body Fl 141 U/L
[2020-11-24 15:23] LABS: Glucose, Body Fluid 129 mg/dL
[2020-11-24 15:26] LABS: Albumin, Body Fluid 0.7 g/dL
[2020-11-24 15:28] LABS: Protein, Body Fluid 1.9 g/dL
[2020-11-24 15:34] LABS: pH, Body Fluid 7.5
[2020-11-24 16:21] LABS: RBC Count, Body Fluid 432 /mm3 (0-0)
[2020-11-24 16:57] LABS: Total Cell Count, Body Fluid 100
[2020-11-24 16:58] LABS: Appearance, Body Fluid Cloudy (Clear); Color, Body Fluid Yellow (None-Yellow)
--- NOTE | 2020-11-24 19:37 | NUR ---
SHIFT SUMMARY PT A&Ox4; CALM AND COOPERATIVE WITH CARE. PT RESTING IN BED DURING SHIFT, Q2 TURNS. PARACENTESIS DURING SHIFT WITH 4L OFF, PT BP TRENDING DOWN AFTER, ALBUMIN GIVEN, BP CONTINUEING TO TREND DOWN, NOTIIFED DR DEMPSEY; NEW ORDERS THIS EVENING FOR 500cc NS BOLUS. PT REPORTS GENERALIZED PAIN T/O SHIFT, DENIES NEEDS FOR MEDIATIONS. PT DENIES SOB, NAUSEA AND DIZZINESS. PT INCONTINENT. OTHER VSS. NO OTHER ACUTE CHANGES NOTED DURING SHIFT. REPORT GIVEN TO ONCOMING RN
--- NOTE | 2020-11-25 04:11 | NUR ---
SHIFT SUMMARY PATIENT IS ALERT AND ORIENTED. Q2 HOUR BRIEF CHANGE AND REPOSITIONING. INCONTINENT OF BLADDER, URINE APPEARS ANGIE. 02 SATS 93-95% ON 3L VIA NC, DE STATES HE FEELS LESS SOB LAST NIGHT. BLOOD PRESSURE SOFT AT BEGINNING OF SHIFT, HAVE IMPROVED. VSS, NO ACUTE CHANGES. CALL LIGHT IN REACH.
[2020-11-25 05:00] LABS: Albumin, Blood 2.1 g/dL (3.4-5.0); Albumin/Globulin Ratio 0.5 (0.8-1.8); Bilirubin, Total 18.2 mg/dL (0.1-1.0); Bun/Creatinine Ratio 28.2 (12.0-20.0); Calcium, Blood 8.2 mg/dL (8.5-10.1); Creatinine, Blood 1.56 mg/dL (0.60-1.20); Globulin, Blood 3.9 g/dL (2.2-4.0); Potassium, Blood 2.9 mmol/L (3.5-5.5)
--- NOTE | 2020-11-25 10:16 | NUR ---
AM NOTE ASSUMED CARE OF PT AT APRROX 0700. A&Ox4; CALM AND COOPERATIVE WITH CARE. PT RESTING IN BED, Q2 REPOSITONING. PT REPORTS PAIN 10/29, DENIES NEED FOR MEDCIATIONS AT THIS TIME. PT DENIES SOB, NAUSEA AND DIZZINESS. SPO2 >90% ON 2L O2 VIA NC, BREATHING EVEN AND UNLABORED. PT RECEIVING IV POTASSIUM AND ALBUMIN. VSS. NO OTHER ACUTE CHANGES NOTED DURING SHIFT. WILL CONTINUE TO MONITOR.
--- NOTE | 2020-11-25 13:20 | NUR ---
TRANSFER NOTE NO ACUTE CHANGES T/O SHIFT. PT BEING TRANSFERED TO ROOM 346, TELEPHONE REPORT GIVEN TO MINERVA LOU RN. PT LEFT ROOM VIA BED AT 1308.
--- NOTE | 2020-11-25 16:47 | NUR ---
SHIFT SUMMARY PCU TRANSFER THIS AFTERNOON. PATIENT DENIES PAIN, NAUSEA, AND SHORTNESS OF BREATH. PATIENT WORKED WITH PT TODAY, DID NOT STAND BUT DANGLED BRIEFY AT BEDSIDE. BED MOBILITY INCREASED WHEN COMPARED TO YESTERDAY. AT BEDSIDE. PLEASANT AND COOPERATIVE WITH CARE.
--- NOTE | 2020-11-26 04:42 | NUR ---
SHIFT SUMMARY NO ACUTE CHANGES THIS SHIFT, NO C/O ANY KIND, REMAINS ON 2L O2 TO MAINTAIN SATS @ 90% (BUT CONTINUALLY FINDING PT W/NC OFF AND SATTING ABOUT 86% ON RA), SLEPT T/O THE NIGHT WAKING FOR CARE THEN EASILY RETURNING TO SLEEP, SLEEPING AT THIS TIME, CALL LIGHT IN REACH, WILL CONT TO MONITOR UNTIL REPORT GIVEN TO DAY RN.
[2020-11-26 05:22] LABS: Hematocrit 30.6 % (37.0-53.0); Hemoglobin 10.8 g/dL (13.5-17.5); Mean Corpuscular HGB 40.8 pg (26.0-34.0); Mean Corpuscular HGB Conc 35.3 g/dL (31.5-36.5); Mean Corpuscular Volume 116 fL (80-100); Mean Platelet Volume 10.1 fL (9.1-12.4); Platelet Count 80 K/mm3 (150-400); RDW Coefficient Variation 15.6 % (11.7-14.2); RDW Standard Deviation 65.5 fL (35.1-46.3); Red Blood Cell Count 2.65 M/mm3 (4.30-5.90)
[2020-11-26 05:49] LABS: Albumin, Blood 2.3 g/dL (3.4-5.0); Albumin/Globulin Ratio 0.6 (0.8-1.8); Bilirubin, Total 15.9 mg/dL (0.1-1.0); Bun/Creatinine Ratio 31.1 (12.0-20.0); Creatinine, Blood 1.35 mg/dL (0.60-1.20); Globulin, Blood 3.8 g/dL (2.2-4.0); Potassium, Blood 3.3 mmol/L (3.5-5.5); Total Protein, Blood 6.1 g/dL (6.4-8.2)
--- NOTE | 2020-11-26 16:14 | NUR ---
SHIFT SUMMARY PATIENT DENIES PAIN, NAUSEA, AND SHORTNESS OF BREATH. PATIENT'S LEGS SORE TO TOUCH WHEN REPOSITIONED. PATIENT WORKED WITH PT, ONE MAX ASSIST STAND PIVOT TO CHAIR, SIT TO STAND BACK TO BED. EATING AND DRINKING WELL. VISITED IN AFERNOON. PLEASANT AND COOPERATIVE WITH CARE.
--- NOTE | 2020-11-27 04:31 | NUR ---
SHIFT SUMMARY NO ACUTE CHANGES THIS SHIFT, DENIES NEED FOR PAIN MEDS, SLEPT T/O THE NIGHT & SLEEPING AT THIS TIME, CALL LIGHT IN REACH, WILL CONT TO MONITOR UNTIL REPORT GIVEN TO DAY RN.
[2020-11-27 05:57] LABS: Alanine Aminotransfer (ALT/SGP 60 U/L (12-78); Albumin, Blood 2.6 g/dL (3.4-5.0); Albumin/Globulin Ratio 0.7 (0.8-1.8); Alk Phos 93 U/L (50-136); Anion Gap 4 mmol/L (6-16); Aspartate Aminotrans (AST/SGOT 130 U/L (12-37); Bilirubin, Total 15.2 mg/dL (0.1-1.0); Blood Urea Nitrogen 38 mg/dL (8-24); Bun/Creatinine Ratio 32.2 (12.0-20.0); CO2, Blood 35 mmol/L (21-32); Chloride, Blood 98 mmol/L (98-108); Creatinine, Blood 1.18 mg/dL (0.60-1.20); Globulin, Blood 3.6 g/dL (2.2-4.0); Glomerular Filtration Rate >60 (60-); Glucose, Blood 94 mg/dL (70-99); Potassium, Blood 3.4 mmol/L (3.5-5.5); Sodium, Blood 137 mmol/L (136-145); Total Protein, Blood 6.2 g/dL (6.4-8.2)
[2020-11-27 07:11] LABS: HBSAG SCREEN Negative (Negative); HEP B CORE AB, TOT Negative (Negative); HEP C VIRUS AB 0.1 (0.0-0.9)
--- NOTE | 2020-11-27 16:32 | NUR ---
SHIFT SUMMARY NO ACUTE CHANGES THIS SHIFT. PT A/O X3, PLEASANT AND COOPERATIVE WITH CARE. PT WORKED WITH PHYSICAL THERAPY AND GETS UP WITH A 2 PERSON STAND PIVOT FROM THE CHAIR TO THE BED. REPORTS PAIN IN LEGS WHICH IS CHRONIC. VSS. RESTING COMFORTABLY IN BED WITH HIS CALL LIGHT IN REACH.
--- NOTE | 2020-11-28 01:16 | NUR ---
TRANSFER: REPORT WAS RECIEVED FROM SHEEBA CORLEY. PATIENT IS RECIEVED INTO ROOM 330. NO ACUTE CHANGES OBSERVED FROM PREVIOUS ASSESSMENT. PATIENT IS ORIENTED TO ROOM AND CALL CHAMPION.
--- NOTE | 2020-11-28 01:19 | NUR ---
PATIENT TRANSFER TO ROOM 330. REPORT GIVEN TO RASHMI CORLEY. PATIENT BELONGINGS INCLUDED. ON 2L O2 NC. TRANSFER COMPLETE.
[2020-11-28 05:20] LABS: Anion Gap 5 mmol/L (6-16); Blood Urea Nitrogen 34 mg/dL (8-24); Bun/Creatinine Ratio 28.8 (12.0-20.0); CO2, Blood 33 mmol/L (21-32); Chloride, Blood 99 mmol/L (98-108); Creatinine, Blood 1.18 mg/dL (0.60-1.20); Glomerular Filtration Rate >60 (60-); Glucose, Blood 98 mg/dL (70-99); Potassium, Blood 3.6 mmol/L (3.5-5.5); Sodium, Blood 137 mmol/L (136-145)
--- NOTE | 2020-11-28 19:00 | NUR ---
ASSUMED CARE RECEIVED REPORT FROM BARNEY LYNCH. PT RESTING, IN NAD. A&OX4, PLEASANT. NO ACUTE NEEDS ASSESSED AT THIS TIME. CALL LIGHT, POSSESSIONS IN REACH, BED IN LOW AND LOCKED POSITION WITH ALARMS ON.
--- NOTE | 2020-11-29 04:26 | NUR ---
COMMUNITY LIAISON OFFICER SUMMARY PT ASLEEP, IN NAD. RESPS E/U. HAS BEEN SLEEPING T/O NIGHT. NO ACUTE CHANGES IN CONDITION NOTED. PLEASANT AND COOPERATIVE WITH CARES. O2 SATS STABLE ON 2L/NC, NO S/S RESPIRATORY DISTRESS NOTED. NO ACUTE NEEDS ASSESSED AT THIS TIME. CALL LIGHT, POSSESSIONS IN REACH, BED IN LOW AND LOCKED POSITION WITH ALARMS ON. WILL CONTINUE TO PROVIDE CARE UNTIL REPORT GIVEN TO ONCOMING RN.
--- NOTE | 2020-11-29 18:35 | NUR ---
SHIFT SUMMARY: NO ACUTE EVENTS. DENIES PAIN. ATE BREAKFAST, NOT INTERESTED IN FOOD THE REST OG THE DAY; STATED "HE'S MORE OF A PHH-KZDH-L-DAY PERSON." GENERALIZED EDEMA, JAUNDICED. WEARING O2 @ 2 L/MIN NC, MAY NEED HOME O2 EVAL PRIOR TO D/C. SLEPT MOST OF THE AFTERNOON.
[2020-11-30 05:26] LABS: Hematocrit 34.7 % (37.0-53.0); Mean Corpuscular HGB 39.9 pg (26.0-34.0); Mean Corpuscular HGB Conc 34.6 g/dL (31.5-36.5); Mean Corpuscular Volume 115 fL (80-100); Mean Platelet Volume 10.1 fL (9.1-12.4); Platelet Count 90 K/mm3 (150-400); RDW Coefficient Variation 14.9 % (11.7-14.2); Red Blood Cell Count 3.01 M/mm3 (4.30-5.90); White Blood Cell Count 12.53 K/mm3 (4.00-11.30)
--- NOTE | 2020-11-30 05:34 | NUR ---
SHIFT SUMMARY AOX3, ANSWERS ORIENTATION QUESTIONS CORRECTLY. HOWEVER, IS FORGETFUL, CONFUSED & DISORIENTED @TIMES. MAKES STATEMENTS LIKE "DID I SLEEP THROUGH BREAKFAST ALREADY?" WHEN IT IS 0300 & "I NEED TO GET UP & DO MY EXERCISES" WHEN IT IS 0100. EASILY REORIENTED. VSS. SPO2 >90% ON 2L O2. REPORTS OCCASIONAL SOB, BREATHING TX PER RT. INCONT OF DARK ORANGE URINE, CHANGE PRN. ABD MOD DISTENDED & TENDER TO PALPATION, HAS ASCITIES-RECIEVED PARACENTESIS A FEW DAYS AGO. POSSIBLE DC HOME c HH. CALL LIGHT & BED ALARM IN PLACE FOR SAFETY. WCTM.
[2020-11-30 05:53] LABS: Albumin, Blood 2.8 g/dL (3.4-5.0); Albumin/Globulin Ratio 0.8 (0.8-1.8); Bilirubin, Total 14.4 mg/dL (0.1-1.0); Calcium, Blood 9.4 mg/dL (8.5-10.1); Creatinine, Blood 1.25 mg/dL (0.60-1.20); Globulin, Blood 3.4 g/dL (2.2-4.0); Potassium, Blood 3.2 mmol/L (3.5-5.5); Total Protein, Blood 6.2 g/dL (6.4-8.2)
--- NOTE | 2020-11-30 18:27 | NUR ---
PT RESTING IN BED AFTER DINNER AND PM MEDICATION ADMIN. PT REMAINS ALERT AND ORIENTED X4, WITH MILD CONFUSION. PT HAS MADE A FEW ODD STATEMENTS THIS SHIFT RE "IS THAT A BEAR OR BUNNY ON THE WALL" HOWEVER IS EASILY REORIENTED. PT MAKES NO COMPLAINTS OF PAIN OR SOB THIS SHIFT. IV WNL AND SL. BED IN LOW POSITION AND CALL LIGHT WITHIN REACH. STAFF WILL CONTINUE TO MONITOR.
--- NOTE | 2020-12-01 03:00 | NUR ---
ENVIRONMENTAL PROPERTY ASSESSOR SUMMARY HAS BEEN RESTING QUIETLY SINCE HS WITH FEW INTERRUPTIONS. HOB REMAINS ELEVATED AT 45 - 60 DEGREES WITH O2 PER NC AT 2L/MIN. SKIN REMAINS JAUNDICED. BOWEL CARE MEDS GIVEN, BUT HAS NOT HAD A BEM OF YET THIS SHIFT. CALL LIGHT IN REACH.
[2020-12-01 05:33] LABS: Bun/Creatinine Ratio 22.9 (12.0-20.0); Calcium, Blood 9.8 mg/dL (8.5-10.1); Creatinine, Blood 1.4 mg/dL (0.60-1.20); Potassium, Blood 3.6 mmol/L (3.5-5.5)
--- NOTE | 2020-12-01 18:33 | NUR ---
SHIFT SUMMARY. A&OX3, INTERMITTENT FORGETFULLNESS, PLEASANT AND COOPERATIVE WITH CARE. PT DENIES PAIN, SOB, N/V. ABD DISTENDED SECONDARY TO ASCITES, SKIN AND SCLERA JAUNDICED. IN TO VISIT THIS AFTERNOON. NO NEW CHANGES OR CONCERNS.
--- NOTE | 2020-12-01 19:58 | NUR ---
AWAKENED WHEN NURSE CAME IN TO ASSESS PT. DROWSY. REPOSITIONED FOR COMFORT. CALL LIGHT IN REACH. RAILS UP X 3
--- NOTE | 2020-12-02 03:39 | NUR ---
VELVET CUTTER SUMMARY HAS BEEN RESTING QUIETLY WITH FEW INTERRUPTIONS SINCE HS. HOB REMAINS 45 DEGREES AND HIGHER THROUGH SHIFT FOR COMFORT. O2 PER NC. RECEIVED BOWEL CARE MEDS AT BUT OF THIS WRITING NO BM. IF NO BM SOON, WILL ADMIN A PRN DULCOLAX SUPP. CALL LIGHT IN REACH
--- NOTE | 2020-12-02 11:22 | NUR ---
pt resting breathing much less labored review of plan of care with nursing.
--- NOTE | 2020-12-02 18:22 | NUR ---
PT ALERT AND ORIENTED TO SELF, FAMILY AND SURROUNDINGS, RESTING IN CHAIR WITH DINNER. PT CONTINUES ON 2L O2 VIA NC, IV SL AND WNL. GRAVEL MACHINE OPERATOR LOWER LEFT ABD PAIN REPORTED AND RESOLVED AFTER TWO LARGE BM'S. DOES NOT USE CALL LIGHT APPROPRIATELY AND GETS UP OUT OF BED OFTEN, ALRM ON, BED IN LOW POSITION AND CALL LIGHT WITHIN REACH. STAFF WILL CONTINUE TO MONITOR.
--- NOTE | 2020-12-02 18:26 | NUR ---
Attempted conversation with pt. He was truggling to track and complained of fatigue form having a large Bowel movment. pt pale sclera slighly jauniticed. respirations slightly labored. pt dependent in all adl's with mild dypsnea at rest. pt high fall risk, high readmission risk, high for falure to thrive or injury due to intoxication. pt currently getting treatmtn at home for chronic non healing decubitus. Called to get history of his needs and prognosis. We discussed the input on his prognosis and risks from his GI physician. We dicussed full treatment, limited treatment and hospice possibly with a plurex. was enthusiastic about hospice for his quality of life and the supoort she could possible recieve. She is coming in tomorrow to review potential. Advised we will notify [facility] for a consult so they could give her more specifics. notified care mangerment ot plan they will contact paris for a consult.
[2020-12-03 05:17] LABS: Hematocrit 34.6 % (37.0-53.0); Mean Corpuscular HGB 39.5 pg (26.0-34.0); Mean Corpuscular HGB Conc 34.7 g/dL (31.5-36.5); Mean Corpuscular Volume 114 fL (80-100); Mean Platelet Volume 10.8 fL (9.1-12.4); Platelet Count 78 K/mm3 (150-400); RDW Coefficient Variation 14.6 % (11.7-14.2); RDW Standard Deviation 61.8 fL (35.1-46.3); Red Blood Cell Count 3.04 M/mm3 (4.30-5.90)
[2020-12-03 05:33] LABS: Bun/Creatinine Ratio 20.7 (12.0-20.0); Calcium, Blood 9.6 mg/dL (8.5-10.1); Creatinine, Blood 1.84 mg/dL (0.60-1.20); Potassium, Blood 3.2 mmol/L (3.5-5.5)
--- NOTE | 2020-12-03 06:40 | NUR ---
PT very jaundiced & confused intermittantly. PT attempting to climb OOB unassisted set of bed alarms several times. Good sitting edge of bed balance. Dusky & dyspnea, PT removes oxygen several times. PT has DNR status. to attend DC planning meeting today. PT reportedly still drinks despite cirrhosis & smokes 1 PPD tobacco. Medicated with ultram 50 mg x 1 for LE pain. Very ataxic gait PT able to stad at bedside with 2 assist FWW GB for a short time. Very [place] hearing aidesat bedside PT dropped them on the floor this am. Incontinent of dark orange urine several times. Able to feed self.
--- NOTE | 2020-12-03 14:11 | NUR ---
Pt resting in bed, appears anxious and slightly agitated. Pt states he has been told for 4 days that he is discharging home and is wantig to go home today. Spouse Cesilia is at bedside. Discussed D/C options with Cesilia and Pt deciding on hospice. Their hosopice agency of choice is [facility]. Educated on hospice philosophy with V/U made by spouse and Pt. Called and left message with Sandra from [facility]. Spoke with Caremanager Tierra and relayed Pt's wishes. Tierra will arrange for D/C home with hospice for tomorrow. Palliative Care will remain available.
--- NOTE | 2020-12-03 19:28 | NUR ---
PT RESTING IN BED AFTER DINNER AND PM MEDICATION ADMIN. PT REMAINS A/O X4 WITH MILD DAYTIME CONFUSION WITH CONCRETE THOUGHTS RE DISCHARGE AND GETTING A DRINK. PT USED HIS IS Q1 HOUR AND COURCE CRACKLES ON EXP CONTINUED. PT TREATED BY RT, O2 INCREASED TO 3L VIA NC. BED IN LOW POSITION AND CALL LIGHT WITHIN REACH. STAFF WILL CONTINUE TO MONITOR.
[2020-12-04 05:04] LABS: Hemoglobin 11.7 g/dL (13.5-17.5); Mean Corpuscular HGB 39.4 pg (26.0-34.0); Mean Corpuscular HGB Conc 34.4 g/dL (31.5-36.5); Mean Corpuscular Volume 115 fL (80-100); Mean Platelet Volume 10.7 fL (9.1-12.4); Platelet Count 83 K/mm3 (150-400); RDW Coefficient Variation 14.5 % (11.7-14.2); RDW Standard Deviation 61.1 fL (35.1-46.3); Red Blood Cell Count 2.97 M/mm3 (4.30-5.90); White Blood Cell Count 16.09 K/mm3 (4.00-11.30)
[2020-12-04 05:27] LABS: Bun/Creatinine Ratio 17.5 (12.0-20.0); Calcium, Blood 9.3 mg/dL (8.5-10.1); Creatinine, Blood 2.52 mg/dL (0.60-1.20); Potassium, Blood 3.3 mmol/L (3.5-5.5)
--- NOTE | 2020-12-04 06:29 | NUR ---
SHIFT SUMMARY PATIENT ALERT AND ORIENTED X2. PLEASANTLY CONFUSED. HAD NO COMPLAINTS OF PAIN OR SHORTNESS OF BREATH. NO ACUTE ISSUES NOTED. IV PATENT AND FLUSHED. BED IN LOWEST POSITION WITH WHEELS LOCKED AND ALARM ON. CALL LIGHT WITHIN REACH. REPORT GIVEN TO ONCOMING RN.
[2020-12-04] MEDS ORDERED: DOXY100 PO (09:54)
[2020-12-04] MEDS ORDERED: DOCUZEN 8.6-501 EACH PO (09:54)
[2020-12-04] MEDS ORDERED: FAMO20 PO (09:55)
[2020-12-04] MEDS ORDERED: Nicoderm Cq1 EAC1 TOP (09:56)
[2020-12-04] MEDS ORDERED: IPRAT-ALBUT 0.5-3 ML INH (09:56)
[2020-12-04] MEDS ORDERED: ORGOVYX120 MG PO (09:57)
[2020-12-04] MEDS ORDERED: SPIR25 PO (09:57)
[2020-12-04] MEDS ORDERED: MIRALAX17 GM PO (09:57)
[2020-12-04] MEDS ORDERED: B-1100 M1 PO (09:58)
--- NOTE | 2020-12-04 11:45 | NUR ---
DISCHARGE NOTE PT IS AO. THIS RN REVIEWED DC INSTRUCTIONS WITH PT. PACKET SENT HOME TO FOR REVIEW. PT ASSISTED INTO WHEELCHAIR BY THIS RN AND WAX PATTERN COATER. PT ASSISTED INTO CLOTHING BY THIS RN. PT TRANSPORTED BY [facility] IN WHEELCHAIR WITH 2 L O2 ON DC. PT HAS LEFT THE BUILDING WITH BELONGINGS PRESENT.
== END 2020-12-04 11:18 | disposition hospice, home (50) | DRG 432 ==
LOC: ER 14:05 → PCU 17:53 → MEDS 11-25 13:10 → ENPENDDIS 12-04 09:35 → MEDS 12-04 11:18
PROVIDERS: Internal Medicine; Internal Medicine Gastroenterology; Physician Assistant; ADMIT Internal Medicine
PROC: 0W9G30Z Drainage of Peritoneal Cavity with Drainage Device, Percutaneous Approach (ICD-10-PCS; principal; 2020-11-24)
DX: K70.31 Alcoholic cirrhosis of liver with ascites (principal); J96.01 Acute respiratory failure with hypoxia; N17.9 Acute kidney failure, unspecified; N39.0 Urinary tract infection, site not specified; E87.1 Hypo-osmolality and hyponatremia; C79.51 Secondary malignant neoplasm of bone; G93.40 Encephalopathy, unspecified; C61 Malignant neoplasm of prostate; E87.70 Fluid overload, unspecified; K70.11 Alcoholic hepatitis with ascites; E87.6 Hypokalemia; B95.7 Other staphylococcus as the cause of diseases classified elsewhere; J44.9 Chronic obstructive pulmonary disease, unspecified; F17.210 Nicotine dependence, cigarettes, uncomplicated; Z71.6 Tobacco abuse counseling; Z98.890 Other specified postprocedural states; Z88.8 Allergy status to other drugs, medicaments and biological substances; Z79.899 Other long term (current) drug therapy
CPT/HCPCS: 36415; 49083; 74176; 80048; 80053; 80076; 81001; 82040; 82042; 82105; 82140; 82945; 83615; 83690; 83735; 83986; 84132; 84157; 85025; 85027; 85610; 86317; 86704; 86708; 86803; 87040; 87070; 87077; 87086; 87186; 87205; 87340; 88108; 88305; 89051; 93005; 93010; 94640; 94667; 94760; 94762; 96365; 96367; 96375; 97110; 97163; 97530; 99285-25; A9270; J0696; J2405; J3430; J3480; J7030; P9046